=== PATIENT | female | born 1950 | race Caucasian/White ===

== ENCOUNTER 2016-12-11 07:30 | Emergency (ER) | payer OTHER ==
[~2016-12-11] VITALS: Ht 175.3 cm; Wt 110.0 kg
[~2016-12-11 07:30] MED LIST: AMLODIPINE BESY10 MG PO; CARVEDILOL12.5 MG PO; DOXAZOSIN MESYLA2 MG PO; Ecotrin PO; GLUCOPHAGE500 MG PO; LANTUS 10100 UNITS/ SC; LANTUS 3 M100 UNITS1 SC; LEVOTHYROXINE25 MCG PO; LISINOPRIL10 MG PO; METFORMIN HCL1000 MG PO; NOVOLOG PE100 UNITS/ SC; PROPRANOLOL HCL80 M1 PO; RENVELA800 MG PO; SIMVASTATIN20 MG PO; Zestril,Prinivil PO
[2016-12-11 07:51] LABS: POINT-OF-CARE METER ID UU13113778
[2016-12-11 08:08] LABS: EOSINOPHIL (%) 0 % (0-5); HEMATOCRIT 43.3 % (36.0-46.0); IMMATURE GRANULOCYTE (%) 0.3 % (0.0-0.7); INSTRUMENT ABS NEUTROPHIL CT 9.9 K/uL; LYMPHOCYTE COUNT 0.7 K/uL (1.0-2.8); MCH 30.8 PG (29.0-34.0); MCHC 33.3 G/DL (30.0-36.0); MCV 92.5 FL (83-99); MONOCYTE (%) 2.1 % (3-12); MONOCYTE COUNT 0.2 K/uL (0-0.8); NEUTROPHIL (%) 91.2 % (45-76); NEUTROPHIL COUNT 9.9 K/uL (1.8-6.4); PLATELET COUNT 232 K/uL (156-360); RBC DIS.WIDTH-CV 12.5 % (11.8-14.6); RBC DIS.WIDTH-SD 43.1 % (39-53); RED BLOOD COUNT 4.68 M/uL (3.80-5.20); WHITE BLOOD COUNT 10.9 K/uL (4.1-10.2)
[2016-12-11 08:15] LABS: CARBON DIOXIDE (BICARBONATE) 31.2 MEQ/L (20-31)
[2016-12-11 08:16] LABS: CHLORIDE 93 mEq/L (99-109); POTASSIUM 4.4 mEq/L (3.7-5.4); SODIUM 135 mEq/L (136-147)
[2016-12-11 08:18] LABS: GLUCOSE 301 mg/dL (70-99)
[2016-12-11 08:19] LABS: ANION GAP 18 MEQ/L (2-14)
[2016-12-11 08:22] LABS: GFR ESTIMATE (CALCULATED) 7 mL/min/
[2016-12-11 08:23] LABS: UREA NITROGEN (BUN) 55 mg/dL (9-23)
[2016-12-11 10:24] VITALS: BP 193/76
== END 2016-12-11 10:30 | disposition home or self-care (01) ==
LOC: EME 07:30
PROVIDERS: Emergency Medicine
DX: E11.65 Type 2 diabetes mellitus with hyperglycemia (principal); R11.2 Nausea with vomiting, unspecified; E11.22 Type 2 diabetes mellitus with diabetic chronic kidney disease; I12.0 Hypertensive chronic kidney disease with stage 5 chronic kidney disease or end stage renal disease; N18.6 End stage renal disease; Z99.2 Dependence on renal dialysis; Z79.4 Long term (current) use of insulin; R06.89 Other abnormalities of breathing; E66.9 Obesity, unspecified; Z68.35 Body mass index [BMI] 35.0-35.9, adult; Z87.442 Personal history of urinary calculi
CPT/HCPCS: 71010; 80048; 82803; 82948; 85025; 99281; 99285; J2405; J7040

== ENCOUNTER 2017-10-17 20:16 | Emergency (ER) | payer OTHER ==
[~2017-10-17] VITALS: Ht 175.3 cm; Wt 121.4 kg
[2017-10-17 20:55] LABS: HEMATOCRIT 38.1 % (36.0-46.0); HEMOGLOBIN 12.9 G/DL (11.9-15.5); MCH 31.6 PG (29.0-34.0); MCHC 33.9 G/DL (30.0-36.0); MCV 93.4 FL (83-99); PLATELET COUNT 217 K/uL (156-360); RBC DIS.WIDTH-CV 13.2 % (11.8-14.6); RED BLOOD COUNT 4.08 M/uL (3.80-5.20); WHITE BLOOD COUNT 6.9 K/uL (4.1-10.2)
[2017-10-17 21:04] LABS: CHLORIDE 96 mEq/L (99-109); SODIUM 136 mEq/L (136-147)
[2017-10-17 21:06] LABS: GLUCOSE 249 mg/dL (70-99)
[2017-10-17 21:10] LABS: CREATININE 5.3 mg/dL (0.6-1.3); GFR ESTIMATE (CALCULATED) 9 mL/min/
[2017-10-17 21:11] LABS: UREA NITROGEN (BUN) 30 mg/dL (9-23)
[2017-10-17 21:15] LABS: TROP-I INTERPRETATION NEGATIVE; TROPONIN-I 0.05 ng/mL (0.0-0.30)
[2017-10-18] MEDS ORDERED: DOXYCYCLINE HY100 MG PO (00:03)
[2017-10-18 00:31] VITALS: BP 246/106
== END 2017-10-18 00:33 | disposition home or self-care (01) ==
LOC: EME 20:16
DX: R06.00 Dyspnea, unspecified (principal); J40 Bronchitis, not specified as acute or chronic; I49.3 Ventricular premature depolarization; I49.1 Atrial premature depolarization; R94.31 Abnormal electrocardiogram [ECG] [EKG]; I12.0 Hypertensive chronic kidney disease with stage 5 chronic kidney disease or end stage renal disease; E11.22 Type 2 diabetes mellitus with diabetic chronic kidney disease; N18.6 End stage renal disease; Z99.2 Dependence on renal dialysis; Z79.4 Long term (current) use of insulin; E66.9 Obesity, unspecified; Z68.39 Body mass index [BMI] 39.0-39.9, adult; Z87.442 Personal history of urinary calculi
CPT/HCPCS: 71046; 80048; 83880; 84484; 85027; 93005; 94640; 99281; 99284; J8540